=== PATIENT | male | born 1945 | race Caucasian/White ===

== ENCOUNTER 2021-07-31 10:48 | Emergency (ER) | payer MEDICARE ==
[~2021-07-31] VITALS: Ht 180.3 cm; Wt 121.0 kg
[2021-07-31] MEDS ORDERED: LISINOPRIL5 MG PO (11:14)
--- NOTE | 2021-08-01 13:58 | EKG ---
[facility] [address] [facility] [place] [address] Signed Sinus bradycardia Low voltage QRS Left anterior fascicular block Abnormal ECG No previous ECGs available Confirmed by REYNALDO HARKINS MD ([id number] on 08/01/2021 1:58:40 PM Electronically Signed By: REYNALDO HARKINS MD 08/01/21 1358 PATIENT NAME: LUDIVINA FIGUEROA Electrocardiogram DATE OF : 49 PHYSICIAN: REYNALDO HARKINS MD REPORT #: [id number] REPORT IS CONFIDENTIAL AND NOT TO BE RELEASED WITHOUT AUTHORIZATION
== END 2021-07-31 15:50 | disposition home or self-care (01) ==
LOC: ED 10:48
DX: U07.1 COVID-19 (principal); I95.9 Hypotension, unspecified; E86.0 Dehydration; Z79.899 Other long term (current) drug therapy
CPT/HCPCS: 71045; 80053; 81001; 83735; 84484; 85025; 93005; 93010; 94640; 99284-25; C9803; J7030; M0243; Q0244; U0003